=== PATIENT | male | born 1970 | race Caucasian/White ===

== ENCOUNTER → 2020-06-17 | Outpatient (CLI) | payer OTHER | LOC: EXRD 12:44 | DX: N43.3 Hydrocele, unspecified (principal); N50.811 Right testicular pain | CPT/HCPCS: 76870 ==

== ENCOUNTER → 2020-06-23 | Outpatient (CLI) | payer OTHER | LOC: US 06-09 09:45 | DX: R79.89 Other specified abnormal findings of blood chemistry (principal); K76.0 Fatty (change of) liver, not elsewhere classified | CPT/HCPCS: 76700 ==

== ENCOUNTER → 2020-06-30 | Outpatient (CLI) | payer OTHER | LOC: LAB 09:55 | DX: M79.671 Pain in right foot (principal); M79.604 Pain in right leg | CPT/HCPCS: 36415; 73630; 85379 ==

== ENCOUNTER → 2020-07-19 | Outpatient (CLI) | payer OTHER | LOC: KOH-I 09:22 | DX: M79.671 Pain in right foot (principal) | CPT/HCPCS: 73630 ==

== ENCOUNTER 2021-10-03 11:37 | Emergency (ER) | payer OTHER ==
[2021-10-03 12:23] LABS: RED BLOOD COUNT 5.12 M/UL (4.20-5.50); WHITE BLOOD COUNT 6.9 K/UL (4.5-11.0)
[2021-10-03 12:41] LABS: BUN/CREATININE RATIO 10 (0-10)
[2021-10-03] MEDS ORDERED: ZOFRAN ODT 4 MG4 MG PO (16:08)
== END 2021-10-03 16:33 | disposition home or self-care (01) ==
LOC: ER1 11:37
PROVIDERS: Emergency Medicine
DX: U07.1 COVID-19 (principal); I25.2 Old myocardial infarction; K21.9 Gastro-esophageal reflux disease without esophagitis; E78.5 Hyperlipidemia, unspecified; Z87.442 Personal history of urinary calculi; Z79.899 Other long term (current) drug therapy; Z88.0 Allergy status to penicillin
CPT/HCPCS: 0240U; 71046; 80053; 81001; 83605; 83690; 85025; 87040; 87081; 87880; 93005; 96365; 99284; J2405; Q9967